=== PATIENT | female | born 2000 ===

== ENCOUNTER → 2025-03-21 12:41 | Outpatient (BNV) | payer OTHER, SELFPAY | PROVIDERS: Visit Provider Radiology Diagnostic Radiology | DX: Z33.1 Pregnant state, incidental (principal); R25.2 Cramp and spasm; Z3A.01 Less than 8 weeks gestation of pregnancy | CPT/HCPCS: 76817 ==

== ENCOUNTER 2025-03-21 13:05 | Outpatient (REF) | payer OTHER, SELFPAY ==
--- NOTE | ~2025-03-21 | US_ITS ---
EXAMINATION: US OBSTETRICAL ULTRASOUND CLINICAL INFORMATION: with cramping COMPARISON: None available. LMP: Approximately 02/07/2025. Gestational age by maternal dates is 6 weeks 0 days. Estimated date of delivery by maternal dates is 11/14/2025. FINDINGS: There is a cystic-like structure in the upper endometrial stripe with a mean diameter of 4 mm. There is no visible fetus or yolk sac. Estimated gestational age: 4 weeks 6 days ROJAS (estimated date of delivery): 11/22/2025 MATERNAL ADNEXA: The right maternal ovary measures 3.9 x 1.8 x 2.1 cm. The left maternal ovary measures 4.7 x 2.3 x 2.1 cm. There is no significant maternal adnexal mass. No maternal pelvic ascites. US/US OB transvaginal IMPRESSION: Possible early intrauterine gestation. Size and dates are not concordant. Estimated gestational age by mean sac diameter is 4 weeks 6 days. Consider short interval follow-up ultrasound for confirmation if clinically indicated. 2. Estimated date of delivery is 11/22/2025 3. No maternal adnexal mass or pelvic ascites. Electronically signed by: Abdulaziz Reynolds MD 03/21/2025 03:04 PM EDT
== END 2025-03-21 13:06 | disposition home or self-care (01) ==
LOC: HO.UMASIMG 13:05
PROVIDERS: Visit Provider Family Medicine
DX: Z34.91 Encounter for supervision of normal pregnancy, unspecified, first trimester (principal); Z3A.01 Less than 8 weeks gestation of pregnancy
CPT/HCPCS: 76817

== ENCOUNTER 2025-03-28 06:27 | Outpatient (REF) | payer OTHER, SELFPAY ==
--- NOTE | ~2025-03-28 | US_ITS ---
CLINICAL HISTORY: EARLY , CHECK FOR IUP US OB 1st trimester transabdominal and transvaginal Comparison: None provided Findings: Single intrauterine . MSD: 8.5 mm. CRL: N/A cm. EGA: 5 weeks, 3 days. ROJAS: November 25, 2025. Previously established gestational age: N/A. Normal yolk sac . No subchorionic bleed. Right ovary 2.4 x 3.4 x 2.1 cm. Left ovary 1.8 x 3.5 x 1.5 cm. IMPRESSION: Single intrauterine estimated 5 weeks, 3 days gestational age by today's ultrasound criteria. This document has been electronically signed by: Nick Brady MD on 03/30/2025 10:06:18
== END 2025-03-28 06:28 | disposition home or self-care (01) ==
LOC: HO.UMASIMG 06:27
PROVIDERS: Visit Provider Family Medicine
DX: Z34.91 Encounter for supervision of normal pregnancy, unspecified, first trimester (principal); Z3A.01 Less than 8 weeks gestation of pregnancy
CPT/HCPCS: 76801; 76817

== ENCOUNTER → 2025-03-28 11:15 | Outpatient (BNV) | payer OTHER, SELFPAY | PROVIDERS: Visit Provider Specialist | DX: Z3A.01 Less than 8 weeks gestation of pregnancy (principal) | CPT/HCPCS: 76801; 76817 ==